=== PATIENT | female | born 1995 | race African-American/Black ===

== ENCOUNTER 2016-06-29 16:26 | Emergency (ER) | payer OTHER ==
--- NOTE | ~2016-06-29 | CT4 ---
[facility] A Service of [facility] RADIOLOGY TEXT RESULTS PATIENT: MONA POLO LOCATION: [facility] : [birth year] UNIT #: [id number] AGE: [address]: John Soria MD SEX: F ORDER DR: [id number] [facility] [address] [place], [place] [address] [id number] E MR#: [id number] Acc #: [id number] NAME: MONA POLO : 1995 SEX: F STUDY DATE/TIME: 06/29/2016 17:45 UNIT: [facility]UD[facility] ROOM: STUDY DESCRIPTION: CT Abd and Pelv Wo Cont Attending Physician: John Soria M.D. Ordering Physician: Nigel Wallace M.D. Primary Care Physician: Alcon Cordova M.D. MEDICAL IMAGING REPORT This report is preliminary unless electronic signature is present EXAM CT abdomen and pelvis, noncontrast, 06/29/2016. HISTORY 21-year-old female in the ED complaining of 3-month history of left lower quadrant abdomen pain and nausea. TECHNIQUE CT examination of the abdomen and pelvis was performed without oral or IV contrast using kidney stone protocol, as requested. FINDINGS CT ABDOMEN: Both kidneys, both ureters and the urinary bladder are normal in noncontrast CT appearance. No visible nephrolithiasis or evidence of urinary obstruction. Liver, pancreas and spleen are negative. No bile duct dilatation. Small bowel and colon are normal in caliber and appearance, as imaged. The appendix is normal. Normal-caliber abdominal aorta. No mass, adenopathy or fluid collection within the abdomen or pelvis. CT PELVIS: Uterus, ovaries, bladder and rectum are within normal limits. No inguinal hernia or abdominal wall hernia. Limited lung base images are negative. IMPRESSION Negative noncontrast CT examination of the abdomen and pelvis. Dictated by... Masood Trinidad M.D. [facility] A Service of [facility] RADIOLOGY TEXT RESULTS PATIENT: MONA POLO LOCATION: [facility] : [birth year] UNIT #: [id number] AGE: [address]: John Soria MD SEX: F ORDER DR: THIS IS AN ELECTRONICALLY VERIFIED REPORT Masood Trinidad M.D. at 06/30/2016 3:01 PM GRETCHEN/vicky TD: 06/29/2016 23:39 JOB #: [id number] MEDICAL IMAGING REPORT COPY
[2016-06-29 16:18] LABS: URINE SOURCE CLEAN CATCH
[2016-06-29 16:25] LABS: URINE APPEARANCE TURBID; URINE BLOOD NEG (NEG); URINE COLOR ORANGE; URINE GLUCOSE NEG (NEG); URINE KETONE TRACE (NEG); URINE LEUKOCYTE ESTERASE TRACE (NEG); URINE NITRATE NEG (NEG); URINE PROTEIN NEG (NEG); URINE SPECIFIC GRAVITY 1.034 (1.003-1.035)
[2016-06-29 16:27] LABS: CULTURE INDICATED? YES; URINE BACTERIA AUWI 3+ (NEGATIVE); URINE SQUAMOUS EPITHELIAL CELL FEW /[HPF]
[2016-06-29 16:29] LABS: BASOPHIL% 0.8 % (0-2.5); EOSINOPHIL% 0.9 % (0.0-7.0); HEMATOCRIT 37.5 % (35.0-45.0); HEMOGLOBIN 12.5 gm/dL (12.0-16.0); LYMPHOCYTE# 1.4 X10e3 (1.0-3.5); MEAN CELL VOLUME 82.9 FL (83-96); MEAN CORPUSCULAR HEMOGLOBIN 27.7 PG (28-34); MEAN CORPUSCULAR HGB CONC 33.4 g/dL (30-36); MEAN PLATELET VOLUME 8.4 FL (6.5-11.5); MONOCYTE# 0.4 X10e3 (0-1.0); MONOCYTE% 6.9 % (3.0-12.0); NEUTROPHIL# 3.5 X10e3 (1.5-7.1); NEUTROPHIL% 65.4 % (40-75); PLATELET COUNT 309 X10e3 (140-420); RED BLOOD COUNT 4.53 X10e (3.90-5.30); RED CELL DISTRIBUTION WIDTH 14.5 % (11.0-15.5); WHITE BLOOD COUNT 5.4 X10e3 (4.0-10.5)
[2016-06-29 16:35] LABS: URINE BILIRUBIN NEG (NEG)
[2016-06-29 16:36] LABS: DIFF IND NO
[2016-06-29 16:52] LABS: ALBUMIN SERUM 3.9 g/dL (3.5-5.0); ALKALINE PHOSPHATASE 90 U/L (32-92); ALT (SGPT) 11 U/L (10-40); AMYLASE 13 U/L (0-46); AST (SGOT) 16 U/L (10-42); BILIRUBIN, DIRECT 0.1 mg/dL (0.0-0.2); BILIRUBIN,INDIRECT 0.6 mg/dL (0.0-0.9); BILIRUBIN,TOTAL 0.7 mg/dL (0.2-2.0); BLOOD UREA NITROGEN 7 mg/dL (9-23); CALCIUM SERUM 8.6 mg/dL (8.4-10.2); CARBON DIOXIDE 24 mmol/L (22-31); CHLORIDE 105 mmol/L (100-111); CREATININE SERUM 0.4 mg/dL (0.6-1.4); GLOM FILT RATE Estimated ABOVE60 mL/min (>60); GLUCOSE FASTING 108 mg/dL (70-110); LIPASE 18 U/L (22-51); POTASSIUM 3.7 mmol/L (3.5-5.1); PROTEIN TOTAL SERUM 7.2 g/dL (6.0-8.3); SODIUM 138 mmol/L (135-145)
== END 2016-06-29 18:57 | disposition home or self-care (01) ==
LOC: CED 16:26
PROVIDERS: Emergency Medicine
DX: N39.0 Urinary tract infection, site not specified (principal)
CPT/HCPCS: 36415; 74176; 80048; 80076; 81003; 82150; 83690; 84703; 85025; 87086; 99284